=== PATIENT | male | born 1965 | race Caucasian/White ===

== ENCOUNTER 2023-08-11 17:17 | Inpatient (IN) | payer OTHER ==
[~2023-08-11] VITALS: Ht 177.8 cm; Wt 88.5 kg
[2023-08-11] MEDS ORDERED: ONDANSETRON HCL/PF 4 MG/2 ML VIAL ONE (17:33)
[2023-08-11] MEDS ORDERED: PANTOPRAZOLE 40 MG VIAL ONE (17:33)
[2023-08-11] MEDS ORDERED: OCTREOTIDE 100 MCG/ML VIAL ONE (17:33)
[2023-08-11] MEDS: IV NS 0.9% 1,000 ML BAG IV ONE ×2 (17:44→18:14)
[2023-08-11 17:52] LABS: BASOPHILS % (AUTO) 0.1 % (0.0-2.0); HEMATOCRIT 37 % (39-51); HEMOGLOBIN 11.9 g/dL (13.5-17.5); LYMPHOCYTES # (AUTO) 2.2 K/uL (0.8-4.8); LYMPHOCYTES % (AUTO) 17.6 % (20.0-44.0); MEAN CORPUSCULAR HEMOGLOBIN 28 PG (26.0-33.0); MEAN CORPUSCULAR HGB CONC 33 g/dl (31.0-36.0); MEAN CORPUSCULAR VOLUME 87 fL (80-96); MONOCYTES # (AUTO) 0.9 K/uL (0.1-1.30); MONOCYTES % (AUTO) 7.1 % (2.0-12.0); NEUTROPHILS # (AUTO) 9.6 K/uL (1.8-8.9); NEUTROPHILS % (AUTO) 75.2 % (43.0-81.0); PLATELET COUNT (AUTO) 296 K/uL (150-450); RED BLOOD CELL COUNT(AUTO) 4.22 MIL/uL (4.5-6.0); RED CELL DISTRIBUTION WIDTH 13.9 % (11.5-15.0); WHITE BLOOD COUNT (AUTO) 12.8 K/uL (4.3-11.0)
[2023-08-11] MEDS: PANTOPRAZOLE 40 MG VIAL IV ONE (18:02)
[2023-08-11] MEDS: ONDANSETRON HCL/PF 4 MG/2 ML VIAL IVP ONE (18:02)
[2023-08-11 18:04] LABS: INR 1.11 (0.91-1.10); PROTHROMBIN TIME 11.3 SECS (9.2-11.1)
[2023-08-11 18:05] LABS: CARBON DIOXIDE 28 mmol/L (21-32); CHLORIDE 111 mmol/L (98-107); CREATININE 0.9 mg/dL (0.6-1.3); GLUCOSE 179 mg/dL (74-106); POTASSIUM 4.7 mmol/L (3.5-5.1); SODIUM SERUM 144 mmol/L (136-145); UREA NITROGEN, BLOOD 53 mg/dL (7-18)
[2023-08-11] MEDS ORDERED: PIPERACI/TAZO 3.375GM/D5W 50ML PB IV ONE (18:05)
[2023-08-11] MEDS: PIPERACILLIN /TAZOBACTAM 3.375 G in IV D5W 50 ML IV ONE (18:11)
[2023-08-11] MEDS: OCTREOTIDE 50 MCG/ML AMPUL IV ONE (18:13)
[2023-08-11 18:15] LABS: LACTIC ACID 3.9 mmol/L (0.4-2.0)
[2023-08-11 18:20] LABS: ALANINE AMINOTRANSFERASE 55 U/L (12-78); ALBUMIN 2.8 g/dL (3.4-5.0); ALKALINE PHOSPHATASE 95 U/L (46-116); ASPARTATE AMINOTRANSFERASE 17 U/L (15-37); BILIRUBIN,DIRECT 0.1 mg/dL (0.0-0.2); BILIRUBIN,TOTAL 0.4 mg/dL (0.2-1.0); TOTAL PROTEIN, SERUM 6.8 g/dL (6.4-8.2)
[2023-08-11 18:21] LABS: ACETAMINOPHEN 0 ug/ml (10-30); ALCOHOL, BLOOD < 3 mg/dL (0-10)
[2023-08-11] MEDS: OCTREOTIDE 50 MCG in IV NS 0.9% 50 ML IJ ONE (18:24)
[2023-08-11 18:28] LABS: SERUM AMMONIA 49 umol/L (11-32)
[2023-08-11] MEDS ORDERED: ESCI5TAB GT (18:28)
[2023-08-11] MEDS ORDERED: ACET325T53 GT (18:28)
[2023-08-11] MEDS ORDERED: TERA2CAP4 GT (18:28)
[2023-08-11] MEDS ORDERED: LANSOPRAZOLE GT (18:28)
[2023-08-11] MEDS ORDERED: GABA-532 GT (18:28)
[2023-08-11] MEDS ORDERED: LEVE100S GT (18:28)
[2023-08-11] MEDS ORDERED: NA P133E RC (18:28)
[2023-08-11] MEDS ORDERED: AMLO-212 GT (18:28)
[2023-08-11] MEDS ORDERED: SENN8.6T19 GT (18:28)
[2023-08-11] MEDS ORDERED: BISA10SU11 RC (18:28)
[2023-08-11] MEDS ORDERED: ACET-637 GT (18:28)
[2023-08-11] MEDS ORDERED: LACT-96 GT (18:28)
[2023-08-11] MEDS ORDERED: ATOR80TA GT (18:28)
[2023-08-11] MEDS ORDERED: METO25TA20 GT (18:28)
[2023-08-11] MEDS ORDERED: MAGN400O6 GT (18:28)
[2023-08-11] MEDS ORDERED: APIX5TAB GT (18:28)
[2023-08-11 18:39] LABS: THYROID STIMULATING HORMONE 1.576 uIU/mL (0.358-3.74)
[2023-08-11] MEDS ORDERED: MORPHINE SULFATE INJ 4 MG/ML DISP.SYRIN ONE (19:07)
[2023-08-11] MEDS: MORPHINE SULFATE INJ 2 MG/ML DISP.SYRIN IV ONE (19:16)
[2023-08-11 20:17] LABS: APPEARANCE,URINE Clear (CLEAR); BILIRUBIN,URINE Negative (NEGATIVE); BLOOD, URINE Large Ery/uL (NEGATIVE); COLOR,URINE YELLOW (YELLOW); KETONES,URINE Trace mg/dL (NEGATIVE); LEUKOCYTE ESTERASE ,URINE Trace (NEGATIVE); NITRITE, URINE Negative (NEGATIVE); PROTEIN,URINE 30 mg/dl (NEGATIVE); UGLUCOSE Negative (NEGATIVE)
[2023-08-11 20:21] LABS: AMPHETAMINE, URINE NEGATIVE (NEGATIVE); BARBITURATE, URINE NEGATIVE (NEGATIVE); BENZODIAZEPINE, URINE NEGATIVE (NEGATIVE); CANNABINOID, URINE NEGATIVE (NEGATIVE); COCCAINE, URINE NEGATIVE (NEGATIVE); PHENCYCLIDINE SCREEN,URINE NEGATIVE (NEGATIVE)
[2023-08-11 20:22] LABS: OPIATE, URINE POSITIVE (NEGATIVE)
[2023-08-11] MEDS ORDERED: LORAZEPAM INJ 2 MG/ML VIAL ONE (20:24)
[2023-08-11] MEDS: LORAZEPAM INJ 2 MG/ML VIAL IV ONE (20:28)
[2023-08-11 20:31] LABS: RBC,URINE TOO NUMEROUS TO COUN /HPF (0-2)
[2023-08-11] MEDS ORDERED: OLANZAPINE 10 MG VIAL IM ONE (20:31)
[2023-08-11 20:32] LABS: ADD URINE CULTURE YES; BACTERIA,URINE 1+ /HPF (None Seen); SQUAMOUS EPITHELIAL CELL,UR Few /HPF (None Seen)
[2023-08-11] MEDS: OLANZAPINE 10 MG VIAL IM ONE (20:35)
[2023-08-11] MEDS ORDERED: ADENOSINE 6 MG/2 ML VIAL ONE (20:41)
[2023-08-11] MEDS ORDERED: AMIODARONE 150 MG/3 ML VIAL IV ONE ×2 (21:37→21:47)
[2023-08-11] MEDS: AMIODARONE 150 MG in IV D5W 100 ML IV ONE (21:55)
[2023-08-11] MEDS: AMIODARONE 450 MG in IV D5W 250 ML IV ONE (22:05)
[2023-08-11] MEDS ORDERED: Magnesium 1GM/D5W 100ML PREMIX 100 ML IV ONE (22:12)
[2023-08-11] MEDS ORDERED: SODIUM BICARBONATE SYR 50 MEQ/50 ML DISP.SYRIN ONE (22:12)
[2023-08-11] MEDS: SODIUM BICARBONATE SYR 50 MEQ/50 ML DISP.SYRIN IV ONE (22:15)
[2023-08-11] MEDS: Magnesium 1GM/D5W 100ML PREMIX 100 ML IV SCH (22:15)
[2023-08-12] MEDS ORDERED: NUTR237L18 PO (01:58)
[2023-08-12] MEDS ORDERED: AMIN887L7 PO (01:58)
[2023-08-12] MEDS ORDERED: CHOL100040 PO (01:58)
[2023-08-12] MEDS ORDERED: ACETAMINOPHEN 325 MG TABLET PO PRN (03:00)
[2023-08-12] MEDS ORDERED: Z GUARD REMEDY 4 OZ OINT TP PRN (03:00)
[2023-08-12] MEDS ORDERED: MAG HYDROX/AL HYDROX/SIMETH 30 ML UDC PO PRN (03:00)
[2023-08-12] MEDS ORDERED: MAGNESIUM HYDROXIDE 30 ML UDC PO PRN (03:00)
[2023-08-12] MEDS ORDERED: ZOLPIDEM TARTRATE 5 MG TABLET PO PRN (03:00)
[2023-08-12] MEDS: PIPERACI/TAZO 3.375GM/D5W 50ML PB IV ONE (04:44)
[2023-08-12] MEDS: ZOSYN IVPB 3.375 G in IV D5W 50ml IV ONE (05:13)
[2023-08-12] MEDS: IV NS 0.9% 1,000 ML IV PRN (05:15)
[2023-08-12] MEDS: AMIODARONE 150 MG/3 ML VIAL IV ONE (05:20)
[2023-08-12] MEDS: AMIODARONE 450 MG in IV D5W 241 ML IV PRN (05:46)
[2023-08-12 06:58] LABS: EOSINOPHILS % (AUTO) 0.1 % (0.0-6.0); HEMATOCRIT 31 % (39-51); HEMOGLOBIN 10.1 g/dL (13.5-17.5); LYMPHOCYTES # (AUTO) 1.9 K/uL (0.8-4.8); LYMPHOCYTES % (AUTO) 11.8 % (20.0-44.0); MEAN CORPUSCULAR HEMOGLOBIN 29 PG (26.0-33.0); MEAN CORPUSCULAR HGB CONC 32 g/dl (31.0-36.0); MEAN CORPUSCULAR VOLUME 89 fL (80-96); MONOCYTES # (AUTO) 1.4 K/uL (0.1-1.30); MONOCYTES % (AUTO) 8.7 % (2.0-12.0); NEUTROPHILS # (AUTO) 13.1 K/uL (1.8-8.9); NEUTROPHILS % (AUTO) 79.4 % (43.0-81.0); PLATELET COUNT (AUTO) 236 K/uL (150-450); RED CELL DISTRIBUTION WIDTH 14.1 % (11.5-15.0); WHITE BLOOD COUNT (AUTO) 16.5 K/uL (4.3-11.0)
[2023-08-12 07:00] LABS: INR 1.15 (0.91-1.10); PROTHROMBIN TIME 12.1 SECS (9.2-11.1)
[2023-08-12 07:12] LABS: ALBUMIN 2.2 g/dL (3.4-5.0); BILIRUBIN,DIRECT 0.2 mg/dL (0.0-0.2); BILIRUBIN,TOTAL 0.4 mg/dL (0.2-1.0); CALCIUM, SERUM 8.2 mg/dL (8.5-10.1); CREATININE 0.8 mg/dL (0.6-1.3); MAGNESIUM 2.2 mg/dL (1.8-2.4); PHOSPHORUS 3.6 mg/dL (2.5-4.9); POTASSIUM 4.4 mmol/L (3.5-5.1); TOTAL PROTEIN, SERUM 5.6 g/dL (6.4-8.2)
[2023-08-12 07:16] LABS: LACTIC ACID 1.8 mmol/L (0.4-2.0)
[2023-08-12] MEDS: OCTREOTIDE 500 MCG in IV NS 0.9% 99 ML IV PRN (07:34)
[2023-08-12 08:00] VITALS: BP 117/91; TEMP 98.2; O2SAT 100
[2023-08-12] MEDS: ZOSYN IVPB 3.375 G in IV D5W 50ml IV SCH (09:07)
[2023-08-12] MEDS: PANTOPRAZOLE 40 MG VIAL IV SCH (09:07)
[2023-08-12 10:42] LABS: MAGNESIUM 2.2 mg/dL (1.8-2.4)
[2023-08-12 11:00] LABS: THYROID STIMULATING HORMONE 0.287 uIU/mL (0.358-3.74)
[2023-08-12 12:00] VITALS: BP 121/98; TEMP 98.6; O2SAT 100
[2023-08-12 16:00] VITALS: BP 130/98; TEMP 97.2; O2SAT 100
[2023-08-12 20:00] VITALS: BP 160/94; TEMP 98.1; O2SAT 94
[2023-08-12] MEDS: OCTREOTIDE 1,250 MCG in IV NS 0.9% 247.5 ML IV PRN (23:14)
[2023-08-13] VITALS: BP 158/95; TEMP 98.5; O2SAT 100
[2023-08-13 04:00] VITALS: BP 158/95; TEMP 98.5; O2SAT 100
[2023-08-13 08:00] VITALS: BP 153/89; TEMP 97.9; O2SAT 100
[2023-08-13 12:00] VITALS: BP 163/105; TEMP 97.9; O2SAT 100
[2023-08-13] MEDS: IV D5W 1,000 ML IV PRN (13:34)
[2023-08-13 16:00] VITALS: BP 126/87; TEMP 97.7; O2SAT 100
[2023-08-13 20:00] VITALS: BP 143/98; TEMP 97.9; O2SAT 98
[2023-08-13] MEDS: ONDANSETRON HCL/PF 4 MG/2 ML VIAL IVP PRN (22:50)
[2023-08-14] VITALS (8 sets, daily range): BP systolic 120–162; BP diastolic 68–99; TEMP 98.4–99.3; O2SAT 96–100
[2023-08-14 07:39] LABS: THYROID STIMULATING HORMONE 0.1 uIU/mL (0.358-3.74); URIC ACID 3.2 mg/dL (2.6-7.2)
[2023-08-14 07:54] LABS: CALCIUM, SERUM 8.7 mg/dL (8.5-10.1); MAGNESIUM 1.9 mg/dL (1.8-2.4); PHOSPHORUS 3.5 mg/dL (2.5-4.9); POTASSIUM 3.3 mmol/L (3.5-5.1)
[2023-08-14] MEDS: LORAZEPAM INJ 2 MG/ML VIAL IV PRN (08:09)
[2023-08-14] MEDS: POTASSIUM CHLORIDE 20 MEQ TAB.PRT.SR PO SCH (10:22)
[2023-08-14] MEDS ORDERED: NA PHOS,M-B/NA PHOS,DI-BA 1 EA ENEMA RC PRN (13:30)
[2023-08-14] MEDS: PIPERACILLIN /TAZOBACTAM 3.375 G in IV D5W 100 ML IV SCH (15:03)
[2023-08-14] MEDS: GABAPENTIN 100 MG CAPSULE GT SCH (16:26)
[2023-08-14] MEDS: LEVETIRACETAM SOL (5 ML) 100 MG/ML UDC GT SCH (16:26)
[2023-08-14] MEDS: ATORVASTATIN 40 MG TABLET GT SCH (21:10)
[2023-08-15] VITALS: BP_SYST 156; BP_SYST 159; BP_DIAS 92; BP_DIAS 96; TEMP 98.6; O2SAT 96; O2SAT 98
[2023-08-15 04:00] VITALS: BP 120/86; TEMP 98.1; O2SAT 99
[2023-08-15] MEDS ORDERED: ZOLPIDEM TARTRATE 5 MG TABLET GT PRN (06:43)
[2023-08-15] MEDS ORDERED: MAG HYDROX/AL HYDROX/SIMETH 30 ML UDC GT PRN (06:43)
[2023-08-15] MEDS ORDERED: MAGNESIUM HYDROXIDE 30 ML UDC GT PRN (06:43)
[2023-08-15 07:38] LABS: CALCIUM, SERUM 8.3 mg/dL (8.5-10.1); CREATININE 0.8 mg/dL (0.6-1.3); POTASSIUM 3.4 mmol/L (3.5-5.1)
[2023-08-15 08:00] VITALS: BP 131/80; TEMP 97.9; O2SAT 100
[2023-08-15] MEDS: ESCITALOPRAM OXALATE (10 MG) 10 MG TABLET GT SCH (08:23)
[2023-08-15] MEDS: PANTOPRAZOLE 40 MG/PACK PACK GT SCH (08:23)
[2023-08-15] MEDS: AMLODIPINE BESYLATE 5 MG TABLET GT SCH (08:23)
[2023-08-15] MEDS: POTASSIUM CHLORIDE 20 MEQ POWDER PACKET NG SCH (10:09)
[2023-08-15 12:00] VITALS: BP 126/76; TEMP 97.7; O2SAT 98
[2023-08-15] MEDS ORDERED: JEVITY 1.5 CAL LIQUID 1,000 ML BOTTLE GT SCH (15:00)
[2023-08-15 16:00] VITALS: BP 125/78; TEMP 97.5; O2SAT 99
[2023-08-15] MEDS: JEVITY 1.2 CAL 1,000 ML BOTTLE GT PRN (17:30)
[2023-08-15 20:00] VITALS: BP 105/74; TEMP 97.9; O2SAT 100
[2023-08-16] VITALS (8 sets, daily range): BP systolic 98–149; BP diastolic 62–89; TEMP 97.3–98.6; O2SAT 94–100
[2023-08-16 07:06] LABS: BASOPHILS % (AUTO) 0.2 % (0.0-2.0); EOSINOPHILS # (AUTO) 0.3 K/uL (0.0-0.7); EOSINOPHILS % (AUTO) 3.9 % (0.0-6.0); HEMATOCRIT 23 % (39-51); HEMOGLOBIN 7.7 g/dL (13.5-17.5); LYMPHOCYTES # (AUTO) 2.1 K/uL (0.8-4.8); LYMPHOCYTES % (AUTO) 29.3 % (20.0-44.0); MEAN CORPUSCULAR HEMOGLOBIN 30 PG (26.0-33.0); MEAN CORPUSCULAR HGB CONC 34 g/dl (31.0-36.0); MEAN CORPUSCULAR VOLUME 89 fL (80-96); MONOCYTES # (AUTO) 0.5 K/uL (0.1-1.30); MONOCYTES % (AUTO) 7.1 % (2.0-12.0); NEUTROPHILS # (AUTO) 4.3 K/uL (1.8-8.9); NEUTROPHILS % (AUTO) 59.5 % (43.0-81.0); PLATELET COUNT (AUTO) 186 K/uL (150-450); RED BLOOD CELL COUNT(AUTO) 2.55 MIL/uL (4.5-6.0); RED CELL DISTRIBUTION WIDTH 13.9 % (11.5-15.0); WHITE BLOOD COUNT (AUTO) 7.3 K/uL (4.3-11.0)
[2023-08-16 07:42] LABS: ALBUMIN 1.9 g/dL (3.4-5.0); BILIRUBIN,TOTAL 0.4 mg/dL (0.2-1.0); CALCIUM, SERUM 7.9 mg/dL (8.5-10.1); CREATININE 0.8 mg/dL (0.6-1.3); PHOSPHORUS 2.8 mg/dL (2.5-4.9); POTASSIUM 3.3 mmol/L (3.5-5.1); TOTAL PROTEIN, SERUM 4.6 g/dL (6.4-8.2)
[2023-08-16] MEDS: POTASSIUM CHLORIDE 20 MEQ POWDER PACKET NG SCH (09:46)
[2023-08-16] MEDS ORDERED: ANESTHESIA TRAY IN PYXIS 1 EA TRAY MC ONE (14:44)
[2023-08-16] MEDS: ACETAMINOPHEN 650 MG/20.3 ML UDC GT PRN (22:12)
[2023-08-17] VITALS: BP 110/64; TEMP 99; O2SAT 97
[2023-08-17] MEDS: JEVITY 1.2 CAL 1,000 ML BOTTLE GT PRN (02:57)
[2023-08-17 04:00] VITALS: BP 104/70; TEMP 97.7; O2SAT 99
[2023-08-17 06:28] LABS: BASOPHILS % (AUTO) 0.2 % (0.0-2.0); EOSINOPHILS # (AUTO) 0.2 K/uL (0.0-0.7); EOSINOPHILS % (AUTO) 2.6 % (0.0-6.0); HEMATOCRIT 26 % (39-51); HEMOGLOBIN 8.9 g/dL (13.5-17.5); LYMPHOCYTES % (AUTO) 27.8 % (20.0-44.0); MEAN CORPUSCULAR HEMOGLOBIN 30 PG (26.0-33.0); MEAN CORPUSCULAR HGB CONC 34 g/dl (31.0-36.0); MEAN CORPUSCULAR VOLUME 89 fL (80-96); MONOCYTES # (AUTO) 0.5 K/uL (0.1-1.30); MONOCYTES % (AUTO) 7.3 % (2.0-12.0); NEUTROPHILS # (AUTO) 4.5 K/uL (1.8-8.9); NEUTROPHILS % (AUTO) 62.1 % (43.0-81.0); PLATELET COUNT (AUTO) 194 K/uL (150-450); RED BLOOD CELL COUNT(AUTO) 2.95 MIL/uL (4.5-6.0); RED CELL DISTRIBUTION WIDTH 13.6 % (11.5-15.0); WHITE BLOOD COUNT (AUTO) 7.2 K/uL (4.3-11.0)
[2023-08-17 07:01] LABS: ALBUMIN 1.8 g/dL (3.4-5.0); BILIRUBIN,TOTAL 0.7 mg/dL (0.2-1.0); CALCIUM, SERUM 7.6 mg/dL (8.5-10.1); CREATININE 0.7 mg/dL (0.6-1.3); MAGNESIUM 1.9 mg/dL (1.8-2.4); PHOSPHORUS 2.2 mg/dL (2.5-4.9); POTASSIUM 3.1 mmol/L (3.5-5.1); TOTAL PROTEIN, SERUM 4.7 g/dL (6.4-8.2)
[2023-08-17 08:20] VITALS: BP 129/81; TEMP 98; O2SAT 99
[2023-08-17] MEDS: POTASSIUM CHLORIDE 20 MEQ POWDER PACKET NG SCH (10:32)
[2023-08-17 12:00] VITALS: BP 94/66; TEMP 97.7; O2SAT 99
[2023-08-17] MEDS: NEUTRA PHOS 1 POWD.PACKET PO SCH (12:47)
[2023-08-17] MEDS: LEVETIRACETAM SOL (5 ML) 100 MG/ML UDC GT SCH (12:48)
[2023-08-17] MEDS: GABAPENTIN 100 MG CAPSULE GT SCH (12:48)
== END 2023-08-17 16:07 | DRG 720 ==
LOC: ER 17:23 → TELE-TD 08-12 00:47 → TELE1 08-14 11:59
PROVIDERS: ADMIT Nurse Practitioner Family; ATTEND Student in an Organized Health Care Education/Training Program
PROC: 0DB58ZX Excision of Esophagus, Via Natural or Artificial Opening Endoscopic, Diagnostic (ICD-10-PCS; principal; 2023-08-16)
PROC: 30233N1 Transfusion of Nonautologous Red Blood Cells into Peripheral Vein, Percutaneous Approach (ICD-10-PCS; 2023-08-16)
DX: A41.9 Sepsis, unspecified organism (principal); J69.0 Pneumonitis due to inhalation of food and vomit; G93.41 Metabolic encephalopathy; K22.11 Ulcer of esophagus with bleeding; E44.0 Moderate protein-calorie malnutrition; E87.20 Acidosis, unspecified; I69.351 Hemiplegia and hemiparesis following cerebral infarction affecting right dominant side; K21.9 Gastro-esophageal reflux disease without esophagitis; R13.10 Dysphagia, unspecified; D50.0 Iron deficiency anemia secondary to blood loss (chronic); K29.70 Gastritis, unspecified, without bleeding; E78.5 Hyperlipidemia, unspecified; F31.9 Bipolar disorder, unspecified; E88.09 Other disorders of plasma-protein metabolism, not elsewhere classified; G40.909 Epilepsy, unspecified, not intractable, without status epilepticus; Z93.1 Gastrostomy status; I10 Essential (primary) hypertension; Z79.01 Long term (current) use of anticoagulants; Z79.899 Other long term (current) drug therapy; I48.91 Unspecified atrial fibrillation; G93.89 Other specified disorders of brain; K59.00 Constipation, unspecified; D68.59 Other primary thrombophilia; E87.0 Hyperosmolality and hypernatremia; E87.6 Hypokalemia; K57.30 Diverticulosis of large intestine without perforation or abscess without bleeding; N20.0 Calculus of kidney; N39.0 Urinary tract infection, site not specified; N40.0 Benign prostatic hyperplasia without lower urinary tract symptoms; R00.0 Tachycardia, unspecified
CPT/HCPCS: 36415; 70450-TC; 71045-TC; 76700-TC; 80048-TC; 80053-TC; 80061-TC; 80076-TC; 81001; 82140-TC; 82728-TC; 82962-TC; 83540-TC; 83605-TC; 83690-TC; 83735-TC; 84100-TC; 84439-TC; 84443-TC; 84484-TC; 84550-TC; 85025-TC; 85610-TC; 85730-TC; 86850-TC; 87040-TC; 87081-TC; 87086-TC; 88305-TC; 88313-TC; 92526; 92611-TC; 93307-TC; 94799-TC; A4223; C9113; G0378; G0480; J0153; J0282; J1953; J2060; J2270; J2354; J2405; J2543; J2704; J3475; J3490; J7030; J7050; J7060; J7070; P9016